=== PATIENT | female | born 1975 | race Asian ===

== ENCOUNTER 2023-09-03 15:21 | Emergency (ER) | payer BC ==
[~2023-09-03] VITALS: Ht 160 cm; Wt 72.6 kg
[2023-09-03 15:46] VITALS: BP_SYST 124; PULSE 77; RESP 16; TEMP 97.4; O2SAT 98
[2023-09-03] MEDS: KETOROLAC TROMETHAMINE 60 MG/2 ML VIAL IM ONE (16:13)
[2023-09-03] MEDS: HYDROcodone/ACETAMIN 10-325 MG TAB PO ONE (16:13)
[2023-09-03 16:15] LABS: BILIRUBIN,URINE NEGATIVE (NEGATIVE); CLARITY/URINE CLEAR (CLEAR); COLOR,URINE YELLOW (YELLOW); GLUCOSE,URINE NEGATIVE (NEGATIVE); KETONES,URINE NEGATIVE (NEGATIVE); LEUKOCYTE ESTERASE ,URINE 2+ (NEGATIVE); NITRITE, URINE NEGATIVE (NEGATIVE); PROTEIN URINE NEGATIVE (NEGATIVE); UROBILINOGEN,URINE 0.2 (0.2-1.0)
[2023-09-03 16:23] LABS: BLOOD, URINE TRACE (NEGATIVE)
[2023-09-03 16:26] LABS: BACTERIA,URINE FEW /HPF (None Seen); MUCUS,URINE None Seen /LPF (None Seen); RBC,URINE NONE SEEN /HPF (0-3)
[2023-09-03] MEDS ORDERED: IBUP-1969 PO (17:00)
[2023-09-03] MEDS ORDERED: HYDR-3917 PO (17:00)
[2023-09-03] MEDS ORDERED: HYDR-3927 PO (17:15)
[2023-09-03 17:16] VITALS: BP_SYST 124; PULSE 77; RESP 16; TEMP 97.4; O2SAT 98
== END 2023-09-03 17:18 | disposition home or self-care (01) ==
LOC: SED 15:21
DX: M54.30 Sciatica, unspecified side (principal); Z88.1 Allergy status to other antibiotic agents
CPT/HCPCS: 99284; 81000; 81001; 87086; 72100; 81025; 96372; 81015; J1885